=== PATIENT | male | born 1980 | race Native Hawaiian/Other Pacific Islander ===

== ENCOUNTER 2020-01-22 18:47 | Emergency (ER) | payer MEDICAID ==
[~2020-01-22] VITALS: Ht 177.8 cm; Wt 114.5 kg
[2020-01-22 18:55] VITALS: TEMP 98
[2020-01-22 19:56] LABS: BASO % 0.5 % (0.0-2.0); EOS % 0.7 % (0-4.0); GRAN # 3.9 (1.4-6.5); GRAN % 69.4 % (42.2-75.2); HEMATOCRIT 42.9 % (42.0-52.0); HEMOGLOBIN 14.3 g/dl (13.5-18.0); LYMPH # 1.3 (1.2-3.4); LYMPH % 22.5 % (20.0-51.0); MEAN CELL VOLUME 88 fl (80.0-100.0); MEAN CORPUSCULAR HEMOGLOBIN 29 pg (27.0-31.0); MEAN CORPUSCULAR HGB CONC 33 g/dl (33.0-37.0); MEAN PLATELET VOLUME 9.3 fl (7.4-10.4); MONO # 0.4 (0.1-0.6); MONO % 6.5 % (1.7-9.3); PLATELET COUNT 236 K/mm3 (130-400); RED BLOOD COUNT 4.87 M/mm3 (4.20-5.60); REDCELL DISTRIBUTION WIDTH-CV 12.4 % (11.5-14.5)
[2020-01-22 19:57] LABS: ALANINE AMINOTRANSFERASE 90 U/L (4-49); ALBUMIN 4.6 gm/dL (3.5-5.0); ALKALINE PHOSPHATASE 72 U/L (50-136); ANION GAP 11 mmol/L (7-16); AST,SGOT 48 U/L (15-37); BILIRUBIN,TOTAL 0.7 mg/dL (0.0-1.0); BLOOD UREA NITROGEN 17 mg/dL (9-20); C-REACTIVE PROTEIN 0.7 mg/dL (0.0-0.9); CARBON DIOXIDE 26 mmol/L (22-30); CHLORIDE 102 mmol/L (98-107); CREATININE, serum 1.11 (0.66-1.25); GLUCOSE 107 mg/dL (74-106); POTASSIUM 3.9 mmol/L (3.4-5.0); SODIUM 138 mmol/L (137-145); TOTAL PROTEIN 8.1 gm/dL (6.4-8.2)
[2020-01-22 20:05] LABS: TROPONIN-I < 0.012 ng/mL (0.000-0.035)
[2020-01-22] MEDS ORDERED: BYSTOLIC10 MG PO (20:18)
[2020-01-22] MEDS ORDERED: AMBIEN 10MG10 MG PO (20:19)
[2020-01-22] MEDS ORDERED: ATIVAN2 MG PO (20:19)
[2020-01-22] MEDS ORDERED: FLONASEALLERGY NS (20:19)
[2020-01-22 20:27] VITALS: BP 126/66; PULSE 80
== END 2020-01-22 20:43 | disposition home or self-care (01) ==
LOC: COL.ER 18:47
PROVIDERS: Emergency Medicine
DX: F41.9 Anxiety disorder, unspecified (principal)
CPT/HCPCS: J2060; J2405; J7030

== ENCOUNTER 2020-04-27 22:49 | Emergency (ER) | payer MEDICAID ==
[~2020-04-27] VITALS: Ht 175.3 cm; Wt 111.8 kg
[~2020-04-27 22:49] MED LIST: AMBIEN 10MG10 MG PO; ATIVAN2 MG PO; BYSTOLIC10 MG PO; FLONASEALLERGY NS
[2020-04-27 22:52] VITALS: TEMP 99.1
[2020-04-27] MEDS ORDERED: ASPIRIN 32325 MG/TAB PO (23:26)
[2020-04-28 00:04] LABS: ALBUMIN 4.8 gm/dL (3.5-5.0); BILIRUBIN,TOTAL 0.7 mg/dL (0.0-1.0); CALCIUM 9.9 mg/dL (8.4-10.2); CREATININE, serum 1.17 (0.66-1.25); MAGNESIUM 1.9 mg/dL (1.6-2.3); TOTAL PROTEIN 7.8 gm/dL (6.4-8.2)
[2020-04-28 00:16] LABS: TROPONIN-I 0.02 ng/mL (0.000-0.035)
[2020-04-28 00:18] LABS: BASO % 0.6 % (0.0-2.0); EOS % 0.7 % (0-4.0); GRAN # 3.5 (1.4-6.5); GRAN % 64.7 % (42.2-75.2); HEMATOCRIT 42.5 % (42.0-52.0); HEMOGLOBIN 14.4 g/dl (13.5-18.0); LYMPH # 1.4 (1.2-3.4); LYMPH % 26.4 % (20.0-51.0); MEAN CELL VOLUME 89 fl (80.0-100.0); MEAN CORPUSCULAR HEMOGLOBIN 30 pg (27.0-31.0); MEAN CORPUSCULAR HGB CONC 34 g/dl (33.0-37.0); MEAN PLATELET VOLUME 9.6 fl (7.4-10.4); MONO # 0.4 (0.1-0.6); MONO % 7.4 % (1.7-9.3); PLATELET COUNT 231 K/mm3 (130-400); REDCELL DISTRIBUTION WIDTH-CV 12.4 % (11.5-14.5)
[2020-04-28] MEDS ORDERED: KLONOPIN 1MG1 MG PO (02:14)
[2020-04-28] MEDS ORDERED: CATAPRES 0.1MG0.1 MG PO (02:14)
[2020-04-28 02:33] VITALS: BP 111/73; PULSE 75
== END 2020-04-28 02:34 | disposition home or self-care (01) ==
LOC: COL.ER 22:49
PROVIDERS: Emergency Medicine
DX: R00.2 Palpitations (principal); F41.9 Anxiety disorder, unspecified; I10 Essential (primary) hypertension; Z88.8 Allergy status to other drugs, medicaments and biological substances; Z79.82 Long term (current) use of aspirin

== ENCOUNTER 2021-06-01 18:27 | Emergency (ER) | payer MEDICAID ==
[~2021-06-01] VITALS: Ht 175.3 cm; Wt 110.5 kg
[~2021-06-01 18:27] MED LIST changes: +ASPIRIN 32325 MG/TAB PO; +CATAPRES 0.1MG0.1 MG PO; +KLONOPIN 1MG1 MG PO
[2021-06-01 18:44] VITALS: TEMP 98.1
[2021-06-01 20:14] LABS: BASO % 0.5 % (0.0-2.0); EOS # 0.1 K/mm3 (0.0-0.7); GRAN # 4.4 K/mm3 (1.4-6.5); GRAN % 73.8 % (42.2-75.2); HEMOGLOBIN 14.6 g/dl (13.5-18.0); LYMPH # 1.1 K/mm3 (1.2-3.4); LYMPH % 17.8 % (20.0-51.0); MEAN CELL VOLUME 88 fl (80.0-100.0); MEAN CORPUSCULAR HEMOGLOBIN 31 pg (27.0-31.0); MEAN CORPUSCULAR HGB CONC 35 g/dl (33.0-37.0); MEAN PLATELET VOLUME 8.8 fl (7.4-10.4); MONO # 0.4 K/mm3 (0.1-0.6); MONO % 6.7 % (1.7-9.3); PLATELET COUNT 251 K/mm3 (130-400); RED BLOOD COUNT 4.78 M/mm3 (4.20-5.60)
[2021-06-01 20:32] LABS: ALBUMIN 4.7 gm/dL (3.5-5.0); C-REACTIVE PROTEIN 0.34 mg/dL (0.00-0.50); CALCIUM 10.6 mg/dL (8.4-10.2); CREATININE, serum 0.93 mg/dL (0.72-1.25); POTASSIUM 4.3 mmol/L (3.5-4.5)
[2021-06-01 20:37] LABS: TROPONIN-I 0.021 ng/mL (0.00-0.033)
[2021-06-01 21:25] VITALS: BP 125/76; PULSE 71
== END 2021-06-01 21:39 | disposition home or self-care (01) ==
LOC: COL.ER 18:27
PROVIDERS: Nurse Practitioner
DX: F41.9 Anxiety disorder, unspecified (principal); T43.595A Adverse effect of other antipsychotics and neuroleptics, initial encounter; I10 Essential (primary) hypertension; Z79.899 Other long term (current) drug therapy

== ENCOUNTER 2021-09-17 18:34 | Emergency (ER) | payer MEDICAID ==
[~2021-09-17] VITALS: Ht 172.7 cm; Wt 110.0 kg
[2021-09-17 18:46] VITALS: TEMP 102.1
[2021-09-17 20:39] VITALS: BP 111/71; PULSE 81
== END 2021-09-17 20:39 | disposition home or self-care (01) ==
LOC: COL.ER 18:34
DX: U07.1 COVID-19 (principal); I10 Essential (primary) hypertension; F41.9 Anxiety disorder, unspecified; Z79.899 Other long term (current) drug therapy; Z73.0 Burn-out
CPT/HCPCS: J7030

== ENCOUNTER 2021-09-19 21:49 | Inpatient (IN) | payer MEDICAID ==
[~2021-09-19] VITALS: Ht 172.7 cm; Wt 96.7 kg
[2021-09-19 23:12] LABS: GRAN # 2.2 K/mm3 (1.4-6.5); GRAN % 67.4 % (42.2-75.2); HEMOGLOBIN 12.8 g/dl (13.5-18.0); LYMPH # 0.8 K/mm3 (1.2-3.4); LYMPH % 25.6 % (20.0-51.0); MEAN CELL VOLUME 86 fl (80.0-100.0); MEAN CORPUSCULAR HEMOGLOBIN 30 pg (27-31); MEAN CORPUSCULAR HGB CONC 35 g/dl (33.0-37.0); MEAN PLATELET VOLUME 9.3 fl (7.4-10.4); MONO # 0.2 K/mm3 (0.1-0.6); MONO % 6.7 % (1.7-9.3); PLATELET COUNT 131 K/mm3 (130-400); RED BLOOD COUNT 4.33 M/mm3 (4.20-5.60); REDCELL DISTRIBUTION WIDTH-CV 12.2 % (11.5-14.5)
[2021-09-19 23:30] LABS: ALBUMIN 3.7 gm/dL (3.5-5.0); BILIRUBIN,TOTAL 0.4 mg/dL (0.2-1.2); C-REACTIVE PROTEIN 6.49 mg/dL (0.00-0.50); CALCIUM 8.4 mg/dL (8.4-10.2); CREATININE, serum 0.83 mg/dL (0.72-1.25); TOTAL PROTEIN 6.7 gm/dL (6.2-8.1)
[2021-09-19 23:35] LABS: TROPONIN-I 0.012 ng/mL (0.00-0.033)
[2021-09-20] VITALS (7 sets, daily range): BP systolic 113–135; BP diastolic 63–76; PULSE 78–92; TEMP 98–101.3
[2021-09-20 00:06] LABS: INR 1.4 (0.8-3.0); PROTHROMBIN TIME 15.7 SECONDS (9.7-12.8)
[2021-09-20] MEDS ORDERED: PRINIVIL20 MG PO (01:32)
[2021-09-20] MEDS ORDERED: BRINTELLIX5 (01:33)
--- NOTE | 2021-09-20 02:20 | NUR ---
PT UP TO MEDICAL FLOOR AND ARRIVES TO ROOM 301 BY ED STAFF AT ABOUT 0115. PT IND, A/OX4, 02 2L NC, TEMPERATURE 101.2, MEDICAITON PROVIDED. MED REC COMPLETE. ASSESMENT COMPLETE. PT ORIENTED TO FLOOR AND HOSPITAL POLICY. .PT DENIES PAIN,SOA,N,V,D AT THIS TIME BUT HAS REPORTED S/S FROM EARLIER THIS DAY. POC DISCUSSED WITH PT, PT VERBALIZES UNDERSTANDING. FOOD BOX PROVIDED. MEDICATION ADMINISTERED ORDERED. PT INSTRUCTED TO REPOISION Q2 AND PURPOSE OF POSTIONING AND S/.S TO REPORT. ALL NEEDS MET AT THIS TIME. PT EXPESSES NO ADDITONAL NEEDS AT THIS TIME. CALL LIGHT WTIHN REACH.
--- NOTE | 2021-09-20 05:32 | NUR ---
PT TEMPERATURE SUBSIDED WITH TYLENOL ADMINISTRATION. 02 NEEDS DID NOT INCREASE OVERNIGHT. PT PLEASANT AND COOPERATIVE THIS SHIFT. ALL NEEDS MET AT THIS TIME. CALL LIGHT WITHN REACH.
[2021-09-20 06:32] LABS: HEMATOCRIT 38.4 % (42.0-52.0); HEMOGLOBIN 12.9 g/dl (13.5-18.0); MEAN CELL VOLUME 89 fl (80.0-100.0); MEAN CORPUSCULAR HEMOGLOBIN 30 pg (27-31); MEAN CORPUSCULAR HGB CONC 34 g/dl (33.0-37.0); MEAN PLATELET VOLUME 9.3 fl (7.4-10.4); PLATELET COUNT 139 K/mm3 (130-400); RED BLOOD COUNT 4.33 M/mm3 (4.20-5.60); REDCELL DISTRIBUTION WIDTH-CV 12.3 % (11.5-14.5)
[2021-09-20 06:56] LABS: ALBUMIN 3.8 gm/dL (3.5-5.0); BILIRUBIN,TOTAL 0.4 mg/dL (0.2-1.2); CALCIUM 8.4 mg/dL (8.4-10.2); CREATININE, serum 0.88 mg/dL (0.72-1.25); POTASSIUM 5.4 mmol/L (3.5-4.5); TOTAL PROTEIN 6.3 gm/dL (6.2-8.1)
[2021-09-20 08:13] LABS: BAND 14 % (0-10); LYMPHOCYTE 21 % (20.0-51.0); NEUTROPHILS 64 % (42.0-75.2); PLATELET ESTIMATE NORMAL (NORMAL)
--- NOTE | 2021-09-20 11:02 | NUR ---
PT ASSESSED. NO COMPLAINTS OF PAIN OR DYSPNEA. DOES COMPLAIN ABOUT COUGH. NO OTHER CONCERNS AT THIS TIME. CALL LIGHT WITHIN REACH
--- NOTE | 2021-09-20 20:30 | NUR ---
Patient is sitting in the side of the bed, alert and oriented x 4, reports SOB Right now with 5 L O2 NC and 92% sat. Telemetry in place, NSR. Assessment completed, medications provided. No further needs at this time. Call light within reach.
[2021-09-21 03:32] VITALS: BP 125/68; PULSE 88; TEMP 98.3
--- NOTE | 2021-09-21 07:03 | NUR ---
Patient had a calm night. He continues with cough, SOB with exertion. 5L O2 NC. Report given to day RN.
[2021-09-21 07:27] LABS: BASO % 0.2 % (0.0-2.0); GRAN # 5.1 K/mm3 (1.4-6.5); GRAN % 79.4 % (42.2-75.2); HEMATOCRIT 38.5 % (42.0-52.0); HEMOGLOBIN 12.9 g/dl (13.5-18.0); LYMPH # 0.9 K/mm3 (1.2-3.4); LYMPH % 13.4 % (20.0-51.0); MEAN CELL VOLUME 89 fl (80.0-100.0); MEAN CORPUSCULAR HEMOGLOBIN 30 pg (27-31); MEAN CORPUSCULAR HGB CONC 34 g/dl (33.0-37.0); MEAN PLATELET VOLUME 9.2 fl (7.4-10.4); MONO # 0.4 K/mm3 (0.1-0.6); MONO % 6.7 % (1.7-9.3); PLATELET COUNT 182 K/mm3 (130-400); RED BLOOD COUNT 4.33 M/mm3 (4.20-5.60); REDCELL DISTRIBUTION WIDTH-CV 12.5 % (11.5-14.5)
[2021-09-21 07:55] LABS: ALBUMIN 3.6 gm/dL (3.5-5.0); BILIRUBIN,TOTAL 0.4 mg/dL (0.2-1.2); C-REACTIVE PROTEIN 3.41 mg/dL (0.00-0.50); CALCIUM 8.8 mg/dL (8.4-10.2); CREATININE, serum 0.78 mg/dL (0.72-1.25); POTASSIUM 4.4 mmol/L (3.5-4.5); TOTAL PROTEIN 6.5 gm/dL (6.2-8.1)
--- NOTE | 2021-09-21 08:08 | NUR ---
RT INCREASTED PT TO HIGH FLOW O2 AT 8LPM VIA NC. PT SATURATION 91% CURRENTLY. PT REPORTS HE STILL FEELS. HE SHORT OF BREATH. RN ATTEMPTED TO CALL HOSP TO ALERT OF STATUS CHANGE AND NO ANSWER.
[2021-09-21 08:17] VITALS: BP 118/74; PULSE 93; TEMP 99.1
--- NOTE | 2021-09-21 10:10 | NUR ---
PATIENT ASKED TO PUT INFORMATION IN CHART TO PLEASE CONTACT HIS 2 BROTHERS; RAHEEM AND JARED IF ANYTHING NEEDS TO BE DONE ON HIS BEHALF. THEY ARE TO BE CONTACTED FIRST, PER PATIENT. HOWARD; [phone] JARED; [phone]
[2021-09-21 10:56] VITALS: BP 122/82; PULSE 89; TEMP 98.9
--- NOTE | 2021-09-21 13:47 | NUR ---
SW completed intake with spouse Chelly [phone] due to patient not being able to reach. Spouse states that she and patient live in [facility], patient does not utilize DME and is independent with ADL's. Spouse states that PCP is Dr. Garrido, pharmacy is [facility] and there has been no individual appointed as DPOA/HC at this time. DC plan is home upon dc. Spouse had no questions or concerns up on completion of intake. SW will continue to follow. DC plan: home with spouse.
[2021-09-21 17:13] VITALS: BP 123/76; PULSE 84; TEMP 99
[2021-09-21 19:19] VITALS: BP 111/58; PULSE 87; TEMP 99.3
--- NOTE | 2021-09-21 22:18 | NUR ---
Patient sitting up in bed and watching TV upon enter the room. Patient alert and oriented. Patient denies chest pain or discomfort. Patient reports SOB with minimal activities and reports feeling very anxious. Patient requesting to get his oxygen level checked at this time. SPO2 88% on 7L oxygen via High Flow NC. Increased oxygen level to 10L and SPO2 reached 90-91%. Patient requesting to have Ativan for tonight before sleep. Called [facility] and received order for Ativan BID. All scheduled meds given per OCT. Ativan given per order. PRN cough med given per patient request for cough. Call light in reach. Will continue to monitor.
[2021-09-21 23:41] VITALS: BP 136/73; PULSE 90; TEMP 98.8
[2021-09-22 03:57] VITALS: BP 115/70; PULSE 84; TEMP 98.4
--- NOTE | 2021-09-22 04:07 | NUR ---
Patient arrived medical floor room 308 via hospital bed from ER at 02:45 am. Patient A/Ox2. Able to tell her name, date of , and place. Unable to tell time and date. Patient speech is mostly clear. Patient having trouble finding words and slow to respond when asked her questions. Patient denies any pain or SOB. Patient currently on room air and VS stable. Hernandez catheter patent and draining yellow cloudy urine. Oriented patient to the room and call light. Call light in reach. Will continue to monitor.
[2021-09-22 08:09] VITALS: BP 122/68; PULSE 82; TEMP 98.6
[2021-09-22 11:09] VITALS: BP 125/75; PULSE 82; TEMP 98.8
--- NOTE | 2021-09-22 11:30 | NUR ---
PT ASSESSED. COMPLAINS OF DYSPNEA AND IS COACHED THROUGH ANXIETY. MEDICATION GIVEN PER MAR. UPDATED. NO OTHER CONCERNS AT THIS TIME. CALL LIGHT WITHIN REACH
[2021-09-22 16:27] VITALS: BP 106/64; PULSE 83; TEMP 99.7
[2021-09-22 19:12] VITALS: BP 116/70; PULSE 85; TEMP 99.5
[2021-09-22 23:32] VITALS: BP 121/72; PULSE 89; TEMP 97.2
[2021-09-23] VITALS (7 sets, daily range): BP systolic 99–119; BP diastolic 55–64; PULSE 89–104; TEMP 99.7–102.7
--- NOTE | 2021-09-23 03:49 | NUR ---
STEFANY REYES NOTIFIED OF PATIENTS TEMP OF 102.7 ORALLY. WILL ADMINISTER TYLENOL 650MG AT THIS TIME. PATIENT ALSO REPORTED NAUSEA NEW ORDER FOR ZOFRAN 4MG Q 4 PRN.
[2021-09-23 06:48] LABS: ALBUMIN 3.7 gm/dL (3.5-5.0); BILIRUBIN,TOTAL 0.9 mg/dL (0.2-1.2); CALCIUM 9.1 mg/dL (8.4-10.2); CREATININE, serum 0.82 mg/dL (0.72-1.25); MAGNESIUM 1.9 mg/dL (1.6-2.6); POTASSIUM 4.3 mmol/L (3.5-4.5); TOTAL PROTEIN 6.5 gm/dL (6.2-8.1)
[2021-09-23 06:50] LABS: GRAN # 5.5 K/mm3 (1.4-6.5); GRAN % 75.8 % (42.2-75.2); HEMATOCRIT 40.2 % (42.0-52.0); HEMOGLOBIN 13.4 g/dl (13.5-18.0); LYMPH # 1.4 K/mm3 (1.2-3.4); LYMPH % 19.3 % (20.0-51.0); MEAN CELL VOLUME 88 fl (80.0-100.0); MEAN CORPUSCULAR HEMOGLOBIN 29 pg (27-31); MEAN CORPUSCULAR HGB CONC 33 g/dl (33.0-37.0); MEAN PLATELET VOLUME 9.7 fl (7.4-10.4); MONO # 0.3 K/mm3 (0.1-0.6); MONO % 4.4 % (1.7-9.3); PLATELET COUNT 262 K/mm3 (130-400); RED BLOOD COUNT 4.56 M/mm3 (4.20-5.60); REDCELL DISTRIBUTION WIDTH-CV 12.4 % (11.5-14.5)
--- NOTE | 2021-09-23 09:35 | NUR ---
PT ASSESSED. NO COMPLAINTS OF PAIN OR DYSPNEA. COMPLAINS OF NAUSEA AND IS MEDICATED PER MAR. MEDICATED FOR FEVER WITH TYLENOL. CALL LIGHT WITHIN REACH
[2021-09-24 03:27] VITALS: BP 118/71; PULSE 95; TEMP 99.9
[2021-09-24 06:34] LABS: EOS % 0.2 % (0.0-4.0); GRAN # 4.6 K/mm3 (1.4-6.5); HEMATOCRIT 37.6 % (42.0-52.0); HEMOGLOBIN 12.9 g/dl (13.5-18.0); LYMPH # 1.1 K/mm3 (1.2-3.4); LYMPH % 18.6 % (20.0-51.0); MEAN CELL VOLUME 87 fl (80.0-100.0); MEAN CORPUSCULAR HEMOGLOBIN 30 pg (27-31); MEAN CORPUSCULAR HGB CONC 34 g/dl (33.0-37.0); MEAN PLATELET VOLUME 9.1 fl (7.4-10.4); MONO # 0.3 K/mm3 (0.1-0.6); MONO % 5.4 % (1.7-9.3); PLATELET COUNT 270 K/mm3 (130-400); RED BLOOD COUNT 4.34 M/mm3 (4.20-5.60); REDCELL DISTRIBUTION WIDTH-CV 12.2 % (11.5-14.5)
[2021-09-24 06:49] LABS: CALCIUM 8.7 mg/dL (8.4-10.2); CREATININE, serum 0.79 mg/dL (0.72-1.25); POTASSIUM 4.3 mmol/L (3.5-4.5)
[2021-09-24 07:35] VITALS: BP 122/63; PULSE 104; TEMP 101.3
--- NOTE | 2021-09-24 09:42 | NUR ---
PT ASSESSED. NO COMPLAINTS OF PAIN OR DYSPNEA. COMPLAINS OF NAUSEA AND IS MEDICATED PER MAR. NO OTHER CONCERNS AT THIS TIME. CALL LIGHT WITHIN REACH
[2021-09-24 12:21] VITALS: BP 114/74; PULSE 91; TEMP 99.5
--- NOTE | 2021-09-24 14:56 | NUR ---
Relationship Manager attempted to contact patient by room phone with no sucess. SW then contacted patient's , Chelly to touch base. Chelly provided patient's cell phone #[phone]. Chelly advised that Hospitalist called her and told her that no other hospital has accepted him. Patient is requesting transfer to a larger hospital in hopes that he can have visitors. Transfer is not medically necessary at this time. Chelly stated patient has "cabin fever". Chelly also advised patient has insomnia, so sometimes he may not answer the phone.
[2021-09-24 17:04] VITALS: BP 128/75; PULSE 98; TEMP 101.5
[2021-09-24 20:02] VITALS: BP 96/62; PULSE 94; TEMP 99.3
--- NOTE | 2021-09-24 21:00 | NUR ---
Patient is sitting on the side of the bed, alert and oriented x 4, VSS, states having nausea and SOB with exertion. Right now at 10 L O2 HFNC. Telemetry in place, NSR. Assessment completed, medications provided. No other needs at this time. Call light within reach.
[2021-09-25 00:16] VITALS: BP 102/54; PULSE 97; TEMP 100.6
[2021-09-25 04:02] VITALS: BP 116/59; PULSE 95; TEMP 100.7
--- NOTE | 2021-09-25 05:16 | NUR ---
Patient has had fever along the night. Tylenol was provided. He is right now at 8 L O2 HFNC. He complained of some nausea. Report will be given to day RN.
[2021-09-25 06:30] LABS: EOS # 0.1 K/mm3 (0.0-0.7); EOS % 1.1 % (0.0-4.0); GRAN # 5.6 K/mm3 (1.4-6.5); GRAN % 83.6 % (42.2-75.2); HEMOGLOBIN 11.9 g/dl (13.5-18.0); LYMPH # 0.7 K/mm3 (1.2-3.4); LYMPH % 10.4 % (20.0-51.0); MEAN CELL VOLUME 87 fl (80.0-100.0); MEAN CORPUSCULAR HEMOGLOBIN 30 pg (27-31); MEAN CORPUSCULAR HGB CONC 34 g/dl (33.0-37.0); MEAN PLATELET VOLUME 9.2 fl (7.4-10.4); MONO # 0.3 K/mm3 (0.1-0.6); MONO % 3.8 % (1.7-9.3); PLATELET COUNT 329 K/mm3 (130-400); REDCELL DISTRIBUTION WIDTH-CV 12.2 % (11.5-14.5)
[2021-09-25 06:41] LABS: CALCIUM 8.4 mg/dL (8.4-10.2); CREATININE, serum 0.81 mg/dL (0.72-1.25); HEMATOCRIT 34.9 % (42.0-52.0); POTASSIUM 3.9 mmol/L (3.5-4.5)
[2021-09-25 07:45] VITALS: BP 105/56; PULSE 94; TEMP 100.6
--- NOTE | 2021-09-25 11:03 | NUR ---
PT ASSESSED. NO COMPLAINTS OF PAIN OR DYSPNEA. NO SIGNS OR SYMPTOMS OF DISTRESS. CALL LIGHT WITHIN REACH
[2021-09-25 12:39] VITALS: BP 121/66; PULSE 103; TEMP 99.6
[2021-09-25 16:25] VITALS: BP 108/51; PULSE 91; TEMP 102.2
--- NOTE | 2021-09-25 19:30 | NUR ---
Patient is resting in bed, alert and oriented x 4, VSS, receiving a dose of antibiotics. 5L [address], NSR. Stated some nausea along the day but not now. Assessment completed, no other needs at this time. Call light within reach.
[2021-09-25 21:02] VITALS: BP 121/63; PULSE 89; TEMP 98.1
[2021-09-26] VITALS (7 sets, daily range): BP systolic 102–1104; BP diastolic 56–70; PULSE 84–102; TEMP 98.8–101.9
--- NOTE | 2021-09-26 04:58 | NUR ---
Patient have fever and complains of nausea. Tylenol and Zofran provided.
--- NOTE | 2021-09-26 06:22 | NUR ---
Patient had a shower, complained of nausea, had an episode of fever 101.3. Right now at 7L 02 NC. Shift report will be given to day RN.
[2021-09-26 07:54] LABS: BASO % 0.2 % (0.0-2.0); EOS # 0.3 K/mm3 (0.0-0.7); EOS % 4.1 % (0.0-4.0); GRAN # 5.2 K/mm3 (1.4-6.5); GRAN % 80.9 % (42.2-75.2); HEMOGLOBIN 11.2 g/dl (13.5-18.0); LYMPH # 0.6 K/mm3 (1.2-3.4); LYMPH % 9.4 % (20.0-51.0); MEAN CELL VOLUME 88 fl (80.0-100.0); MEAN CORPUSCULAR HEMOGLOBIN 30 pg (27-31); MEAN CORPUSCULAR HGB CONC 34 g/dl (33.0-37.0); MEAN PLATELET VOLUME 9.3 fl (7.4-10.4); MONO # 0.3 K/mm3 (0.1-0.6); MONO % 4.6 % (1.7-9.3); PLATELET COUNT 324 K/mm3 (130-400); RED BLOOD COUNT 3.79 M/mm3 (4.20-5.60); REDCELL DISTRIBUTION WIDTH-CV 12.3 % (11.5-14.5)
[2021-09-26 08:03] LABS: HEMATOCRIT 33.3 % (42.0-52.0)
[2021-09-26 08:14] LABS: CALCIUM 8.2 mg/dL (8.4-10.2); CREATININE, serum 0.77 mg/dL (0.72-1.25); POTASSIUM 4.1 mmol/L (3.5-4.5)
--- NOTE | 2021-09-26 10:31 | NUR ---
PT RESTING IN BED. MORNING MEDICATIONS GIVEN. SHIFT ASSESSMENT COMPLETED. NEW IV STARTED TO L AC, OLD IV D/C. PT DENIES ANY PAIN AT THIS TIME. URINE SAMPLE OBTAINED. REQUESTING MORE FLONASE DUE TO DRY NARES FROM OXYGEN, PHARMACY CONTACTED. CURRENTLY ON 6L VIA MI. WILL CONTINUE TO MONITOR.
[2021-09-26 13:16] LABS: MUCOUS Present (NOT PRESENT); PH 6 (5-8); SQUAMOUS EPITHELIAL None Seen /hpf (0-10); URINE APPEARANCE Clear (CLEAR/HAZY); URINE BACTERIA None Seen /hpf (NONE SEEN); URINE BILIRUBIN Negative (NEGATIVE); URINE BLOOD Negative (NEGATIVE); URINE COLOR Yellow (YELLOW); URINE GLUCOSE Negative (NEGATIVE); URINE KETONE Trace (NEGATIVE); URINE LEUKOCYTE ESTERASE Negative (NEGATIVE); URINE NITRATE Negative (NEGATIVE); URINE PROTEIN(semi-quant) Negative (NEGATIVE); URINE RBC 0-2 /hpf (0-2); URINE UROBILINOGEN >=4.0 (NEGATIVE)
[2021-09-26 13:43] LABS: COLLECTION METHOD CLEAN CATCH
--- NOTE | 2021-09-26 21:00 | NUR ---
Patient is resting in chair, receiving antibiotics and watching televition. Family drop some food for him. Telemetry in place, 6L O2 NC. Continues with intermitent fever. Assessment completed, medications provided. No other needs at this time. Call light within reach.
[2021-09-27] VITALS (7 sets, daily range): BP systolic 97–117; BP diastolic 52–70; PULSE 83–90; TEMP 99.2–102.2
--- NOTE | 2021-09-27 06:16 | NUR ---
Patient continues with fever and nausea but states he is feeling better. Right now at 8L O2 HFNC. Report will be given to day RN.
[2021-09-27 07:59] LABS: BASO % 0.2 % (0.0-2.0); EOS # 0.2 K/mm3 (0.0-0.7); EOS % 4.5 % (0.0-4.0); GRAN # 3.9 K/mm3 (1.4-6.5); GRAN % 73.9 % (42.2-75.2); HEMOGLOBIN 11.5 g/dl (13.5-18.0); LYMPH # 0.8 K/mm3 (1.2-3.4); LYMPH % 15.4 % (20.0-51.0); MEAN CELL VOLUME 88 fl (80.0-100.0); MEAN CORPUSCULAR HEMOGLOBIN 30 pg (27-31); MEAN CORPUSCULAR HGB CONC 34 g/dl (33.0-37.0); MEAN PLATELET VOLUME 8.9 fl (7.4-10.4); MONO # 0.3 K/mm3 (0.1-0.6); MONO % 4.9 % (1.7-9.3); PLATELET COUNT 397 K/mm3 (130-400); RED BLOOD COUNT 3.88 M/mm3 (4.20-5.60); REDCELL DISTRIBUTION WIDTH-CV 12.5 % (11.5-14.5)
[2021-09-27 08:04] LABS: HEMATOCRIT 34.2 % (42.0-52.0)
[2021-09-27 08:05] LABS: ALBUMIN 2.5 gm/dL (3.5-5.0); BILIRUBIN,TOTAL 0.7 mg/dL (0.2-1.2); CALCIUM 8.8 mg/dL (8.4-10.2); CREATININE, serum 0.7 mg/dL (0.72-1.25); POTASSIUM 4.4 mmol/L (3.5-4.5); TOTAL PROTEIN 6.3 gm/dL (6.2-8.1)
--- NOTE | 2021-09-27 09:07 | NUR ---
PT RESTING IN BED. MORNING MEDICATIONS GIVEN. SHIFT ASSESSMENT COMPLETED. DENIES ANY PAIN AT THIS TIME. PT IS DROWSY. CURRENTLY ON 7L VIA NE. CONTINUING TO MONITOR.
--- NOTE | 2021-09-27 11:16 | NUR ---
Dissolver Operator attempted to contact patient by cell and left a voicemail.
--- NOTE | 2021-09-27 17:43 | NUR ---
THIS RN DISCOVERED PT WAS TAKING PERSONAL MEDICATIONS FROM PILL BOTTLES IN ROOM. MEDICATIONS REMOVED FROM ROOM AND DR. CABRERA CONTACTED. INSTRUCTED TO UPDATE MED REC WITH WHAT PT HAS BEEN TAKING.
[2021-09-27] MEDS ORDERED: CATAPRES 0.1MG0.1 MG PO (17:50)
[2021-09-27] MEDS ORDERED: ZOFRAN 4MG T4 MG/TAB PO (17:51)
[2021-09-27] MEDS ORDERED: MUCINEX1200 MG PO (17:53)
[2021-09-27] MEDS ORDERED: ADVIL200 MG PO (17:54)
[2021-09-27] MEDS ORDERED: TYLENOL 500MG500 MG PO (17:54)
[2021-09-28 03:13] VITALS: BP 124/62; PULSE 104; TEMP 100.8
--- NOTE | 2021-09-28 03:45 | NUR ---
NOTIFIED BY SCHEDULING ADMINISTRATOR THAT O2 SATS 85% ON 9L HFNC, INCREASED OXYGEN TO 12L THEN TO 15L, SATS UP TO 88-89%, PT STATES HE IS UNABLE TO PRONE D/T STACI. ELEVATED HOB, NOTIFIED RT AND NIXON Peterson APRN OF INCREASED O2 REQUIREMENTS. PT FEELS "STUFFED UP" SALINE SPRAY ORDER OBTAINED.
--- NOTE | 2021-09-28 06:13 | NUR ---
PT placed on airvo this shift, unable to keep sats >90% on HFNC. settings 40L 90%. pt asking to have flow decreased so he can sleep, RT notified, no changes at this time. up ad sherman in room, voiding in urinal. INT in LAC patent/secure. Tmax 100.8 tonight, has requested tylenol x2, last @0400.
[2021-09-28 06:58] LABS: BASO % 0.2 % (0.0-2.0); EOS # 0.3 K/mm3 (0.0-0.7); EOS % 4.8 % (0.0-4.0); GRAN % 76.1 % (42.2-75.2); HEMOGLOBIN 10.9 g/dl (13.5-18.0); LYMPH # 0.6 K/mm3 (1.2-3.4); LYMPH % 11.9 % (20.0-51.0); MEAN CELL VOLUME 87 fl (80.0-100.0); MEAN CORPUSCULAR HEMOGLOBIN 29 pg (27-31); MEAN CORPUSCULAR HGB CONC 34 g/dl (33.0-37.0); MEAN PLATELET VOLUME 8.9 fl (7.4-10.4); MONO # 0.3 K/mm3 (0.1-0.6); MONO % 5.9 % (1.7-9.3); PLATELET COUNT 404 K/mm3 (130-400); RED BLOOD COUNT 3.71 M/mm3 (4.20-5.60); REDCELL DISTRIBUTION WIDTH-CV 12.5 % (11.5-14.5)
[2021-09-28 07:05] LABS: CALCIUM 8.5 mg/dL (8.4-10.2); CREATININE, serum 0.69 mg/dL (0.72-1.25)
[2021-09-28 07:42] LABS: HEMATOCRIT 32.3 % (42.0-52.0)
[2021-09-28 08:08] VITALS: BP 91/51; PULSE 79; TEMP 98.5
--- NOTE | 2021-09-28 10:12 | NUR ---
PT ALERT AND ORIENTED IN ROOM. ASSESSMENT COMPLETED TO BEST OF ABILITY. ANSWERED QUESTIONS TO BEST OF ABILITY. PT ABLE TO EXPRESS NEEDS. ADDRESSED LOW BP AND NEED FOR HOLDING BP MEDICATIONS. DISCUSSED WITH PT, STATED WANTING TO TAKE AT LEAST ONE MEDICATION, RELAYED TO DR. CABRERA FOR FURTHER EDUCATION. PT AFEBRILE FOR 0800 VS. PT BROTHER CALLED FOR UPDATE, CONFIRMED VERBAL CONSENT BY PT. CALL LIGHT WITHIN REACH, BREAKFAST TRAY IN ROOM.
--- NOTE | 2021-09-28 11:21 | NUR ---
PT BROTHER CALLED FOR UPDATE. VERBAL CONSENT RECEIVED BY PT. UPDATE GIVEN TO BEST OF ABILITY. PT BROTHER REQUESTING UPDATE BY DR. CABRERA WILL RELAY REQUEST.
[2021-09-28 11:52] VITALS: BP 117/69; PULSE 87; TEMP 99.3
--- NOTE | 2021-09-28 11:55 | NUR ---
DISCUSSED WITH PT, PT WANTING TO CHANGE FROM FULL RESUSCITATION TO DO NOT INTUBATE. NOTIFIED JENNIFER NORIEGA AND DR. CABRERA. NOTIFIED DR. CABRERA PT FAMILY WANTING TO BE UPDATED AND PT WANTING TO TRANSFER TO . PT BROTHER RAHEEM [phone].
--- NOTE | 2021-09-28 14:28 | NUR ---
PT EXPRESSING YAZIDI PREFERENCES TO HAVE JOB CHANGE CREW MEMBER FROM [facility] NOTIFIED SHOULD THERE BE CONCERNS FOR DECREASED LIFE EXPECTANCY. DOCUMENTING HERE FOR FUTURE REFERENCE.
[2021-09-28 15:43] VITALS: BP 116/72; PULSE 96; TEMP 98.3
--- NOTE | 2021-09-28 16:32 | NUR ---
PT CALLED, OBTAINED VERBAL CONSENT FROM PT. UPDATED TO BEST OF ABILITY. PT VERBALIZED UNDERSTANDING.
--- NOTE | 2021-09-28 18:37 | NUR ---
PT HAD OWN FOOD BROUGHT IN
--- NOTE | 2021-09-28 18:37 | NUR ---
PT CONTINUING ON PLAN OF CARE. MEDICATIONS GIVEN PER ORDERS. UPDATED PHYSICIANS WITH PT STATUS ON AIRVO. PT NOW ON HF CANNULA PER RESPIRATORY THERAPY. PT ABLE TO CALL FOR NEEDS AND EXPRESS CONCERNS FREELY. PT CALL LIGHT WITHIN REACH, NO SIGNIFICANT CHANGES NOTED IN PT THIS SHIFT.
[2021-09-28 19:15] VITALS: BP 131/82; PULSE 95; TEMP 99.2
[2021-09-28 23:35] VITALS: BP 134/84; PULSE 96; TEMP 98.9
[2021-09-29 03:32] VITALS: BP 127/75; PULSE 92; TEMP 98
[2021-09-29 05:25] LABS: ARTERIAL BLD GAS O2 SATURATION 97.2 % (92-100); ARTERIAL BLD GAS TCO2 CT 27.9; ARTERIAL BLOOD GAS BASE EXCESS 2.3 (-2-2); ARTERIAL BLOOD GAS HCO3 26.6 meq/L (22-26); ARTERIAL BLOOD GAS PCO2 40.5 mmHg (35-45); ARTERIAL BLOOD GAS PO2 90.7 mmHg (80-100); ARTERIAL BLOOD GAS pH 7.44 (7.35-7.45)
[2021-09-29 07:32] LABS: HEMATOCRIT 37.1 % (42.0-52.0); HEMOGLOBIN 12.2 g/dl (13.5-18.0); MEAN CELL VOLUME 89 fl (80.0-100.0); MEAN CORPUSCULAR HEMOGLOBIN 29 pg (27-31); MEAN CORPUSCULAR HGB CONC 33 g/dl (33.0-37.0); MEAN PLATELET VOLUME 9.2 fl (7.4-10.4); RED BLOOD COUNT 4.16 M/mm3 (4.20-5.60); REDCELL DISTRIBUTION WIDTH-CV 12.5 % (11.5-14.5)
[2021-09-29 07:34] LABS: CALCIUM 9.9 mg/dL (8.4-10.2); CREATININE, serum 0.75 mg/dL (0.72-1.25); POTASSIUM 4.5 mmol/L (3.5-4.5)
[2021-09-29 07:35] LABS: PLATELET COUNT 527 K/mm3 (130-400)
[2021-09-29 08:03] VITALS: BP 134/85; PULSE 89; TEMP 98.2
[2021-09-29 09:22] LABS: LYMPHOCYTE 3 % (20.0-51.0); NEUTROPHILS 89 % (42.0-75.2)
--- NOTE | 2021-09-29 11:20 | NUR ---
PT SITTING UP IN BED WATHCING TV. AT BEDSIDE. PT STATES THAT HE WOULD LIKE TO HAVE ICE IN CUP. ICE WAS GOTTEN FOR PT. NO OTHER NEEDS VOICED AT THIS TIME. PT STATES THAT HE IS NOT HAVING ANY PAIN. CALL LIGHT IS WITHIN REACH.
[2021-09-29 11:29] VITALS: BP 131/79; PULSE 91; TEMP 98.2
[2021-09-29 16:01] VITALS: BP 123/90; PULSE 98; TEMP 98.3
--- NOTE | 2021-09-29 18:37 | NUR ---
PT SITTING IN BED WITH 7L VIA HIGH FLOW NC ON. PT STATES THAT HE JUST GOT UP AND WALKED AROUND THE ROOM. STATES HE DID GET A LITTLE SOB AND HAD TO REST. PT HAS PULSE OX ON AND HE IS AT 89-90%. PT STATES THAT HE IS GOING TO REST AND THEN TRY AGAIN LATER. PT STATES NO OTHER NEEDS AT THIS TIME. CALL LIGHT IS WITHIN REACH.
[2021-09-29 20:20] VITALS: BP 135/90; PULSE 100; TEMP 98.4
[2021-09-30] VITALS (7 sets, daily range): BP systolic 104–140; BP diastolic 67–91; PULSE 66–93; TEMP 97.4–98.7
[2021-09-30 06:46] LABS: BASO % 0.2 % (0.0-2.0); GRAN # 10.5 K/mm3 (1.4-6.5); GRAN % 82.8 % (42.2-75.2); HEMATOCRIT 38.1 % (42.0-52.0); HEMOGLOBIN 12.6 g/dl (13.5-18.0); LYMPH # 1.5 K/mm3 (1.2-3.4); LYMPH % 11.9 % (20.0-51.0); MEAN CELL VOLUME 88 fl (80.0-100.0); MEAN CORPUSCULAR HEMOGLOBIN 29 pg (27-31); MEAN CORPUSCULAR HGB CONC 33 g/dl (33.0-37.0); MONO # 0.5 K/mm3 (0.1-0.6); MONO % 4.2 % (1.7-9.3); PLATELET COUNT 609 K/mm3 (130-400); RED BLOOD COUNT 4.33 M/mm3 (4.20-5.60); REDCELL DISTRIBUTION WIDTH-CV 12.3 % (11.5-14.5)
--- NOTE | 2021-09-30 06:51 | NUR ---
PT on 5L O2 this shift, able to take long shower during the noc without feeling increased SOA, up ad sherman in room, no fevers tonight, BP beginning to elevate, pt requested prn ativan @HS, but only wanted half a dose, 1 mg, tolerated well. LAC INT patent/secure.
[2021-09-30 07:03] LABS: CALCIUM 9.8 mg/dL (8.4-10.2); CREATININE, serum 0.91 mg/dL (0.72-1.25); POTASSIUM 4.5 mmol/L (3.5-4.5)
--- NOTE | 2021-09-30 09:20 | NUR ---
PT SITTING UP IN BED. 6 LIT VIA [employer] ON. PT STATES THAT HE WANTS TO TAKE HIS OWN BP MEDICATION "THE DR TOLD ME THAT I HAVE TO TAKE MY OWN AND NOT ANY OTHER KIND BECAUSE I HAD A REACTION TO IT" PHARMACY WAS CALLED AND PTS MEDICATION WAS LABELED AND SENT DOWN FOR USE. MEDICATION WAS GIVEN TO PT AND THEN PLACED IN MED ROOM. PT STATES NO PAIN. PT ENCOURAGED TO GET UP AND MOVE AROUND ROOM. PT ENCOURAGED TO USE INCESTIVE SPIROMETER. PT STATES "I AM GOING TO DO THAT LATER." PT VOICED NO OTHER CONCERNS AT THIS TIME. CALL LIGHT IS SNAPP'.
--- NOTE | 2021-09-30 11:16 | NUR ---
The patient was down to 5 liters of oxygen this morning. The hospitalist plans to order an exercise oximetry on the patient tomorrow. SW attempted to contact the patient's room and cell phone to follow up. He did not answer and his cell phone went straight to voicemail. JENNIFER contacted the patient's , Chelly, to follow up. She is hopeful that the patient can discharge tomorrow or soon. She had no other concerns for JENNIFER at this time.
--- NOTE | 2021-09-30 18:44 | NUR ---
PT STANDING AT WINDOW VISITING WITH FAMILY OUTSIDE. PT STATES NO NEEDS AT THIS TIME. [facility]
[2021-10-01 03:16] VITALS: BP 126/86; PULSE 75; TEMP 98
--- NOTE | 2021-10-01 06:02 | NUR ---
pt on 5L O2 all shift, ativan given @HS, pt slept well most of the noc.
[2021-10-01 08:14] VITALS: BP 123/87; PULSE 73; TEMP 98
--- NOTE | 2021-10-01 09:00 | NUR ---
PT SITTING UP IN BED ON 2LIT VIA NC. STATES THAT HE IS READY TO GO HOME. PT STATES THAT HE WOULD LIKE TO HAVE SOME ATIVAN BEFORE HE GOES HOME. 1MG WAS GIVEN TO PT. PT STATES NO OTHER NEEDS AT THIS TIME. "I AM JUST READY TO GET OUT OF HERE." PT STATES THAT HE IS NOT HAVING ANY PAIN. CALL LIGHT IS WITHIN REACH.
[2021-10-01] MEDS ORDERED: FLONASE NASAL S16 GM NS (09:01)
[2021-10-01] MEDS ORDERED: PROAIR HFA0.09 MG/AC IH (09:03)
[2021-10-01] MEDS ORDERED: OXYGEN (09:13)
--- NOTE | 2021-10-01 09:38 | NUR ---
JENNIFER notified by RT that the patient will need 2L of oxygen going home. Patient's Shi contacted and is agreeable to picking the oxygen up prior to picking the patient up. Shi chose [facility] for [employer] company. Oxygen order faxed to [facility]. PAtient's RN notified of the above.
--- NOTE | 2021-10-01 11:18 | NUR ---
PTS HOME MEDICATIONS WERE GOTTEN FROM PHARMACY AND OUT OF PT BED IN MED ROOM AND GIVEN BACK TO PT. PT SIGNED PHARM PAPER TO CONFIRM.
[2021-10-01 12:02] VITALS: BP 117/86; PULSE 68; TEMP 98.4
== END 2021-10-01 14:00 | disposition home or self-care (01) | DRG 177 ==
LOC: COL.ER 21:49 → MEDICAL 23:17
PROVIDERS: Internal Medicine; Internal Medicine Infectious Disease; Internal Medicine Pulmonary Disease; Nurse Practitioner; Physician Assistant; ADMIT Student in an Organized Health Care Education/Training Program
PROC: XW033E5 Introduction of Remdesivir Anti-infective into Peripheral Vein, Percutaneous Approach, New Technology Group 5 (ICD-10-PCS; principal; 2021-09-19)
PROC: 3E0DX3Z Introduction of Anti-inflammatory into Mouth and Pharynx, External Approach (ICD-10-PCS; 2021-09-19)
PROC: XW033H5 Introduction of Tocilizumab into Peripheral Vein, Percutaneous Approach, New Technology Group 5 (ICD-10-PCS; 2021-09-28)
DX: U07.1 COVID-19 (principal); J12.82 Pneumonia due to coronavirus disease 2019; J96.01 Acute respiratory failure with hypoxia; I10 Essential (primary) hypertension; E87.5 Hyperkalemia; K76.0 Fatty (change of) liver, not elsewhere classified; R50.9 Fever, unspecified; F43.10 Post-traumatic stress disorder, unspecified; F41.9 Anxiety disorder, unspecified; Z79.82 Long term (current) use of aspirin; Z88.8 Allergy status to other drugs, medicaments and biological substances
CPT/HCPCS: 99223-AI; 99232-AI; 99233-AI; 99239; J0248; J0696; J1100; J1450; J1644; J1650; J1956; J2405; J2543; J7030; J7050; J8540; Q0249; Q9967

== ENCOUNTER 2022-10-04 15:55 | Emergency (ER) | payer MEDICAID ==
[~2022-10-04] VITALS: Ht 175.3 cm; Wt 104.1 kg
[~2022-10-04 15:55] MED LIST changes: +ADVIL200 MG PO; +BRINTELLIX5; +FLONASE NASAL S16 GM NS; +MUCINEX1200 MG PO; +OXYGEN; +PRINIVIL20 MG PO; +PROAIR HFA0.09 MG/AC IH; +TYLENOL 500MG500 MG PO; +ZOFRAN 4MG T4 MG/TAB PO
[2022-10-04 16:09] VITALS: TEMP 98.7
[2022-10-04 19:25] LABS: BASO % 0.3 % (0.0-2.0); EOS # 0.1 K/mm3 (0.0-0.7); GRAN # 6.5 K/mm3 (1.4-6.5); GRAN % 71.9 % (42.2-75.2); HEMOGLOBIN 14.8 g/dl (13.5-18.0); LYMPH # 1.8 K/mm3 (1.2-3.4); MEAN CELL VOLUME 87 fl (80.0-100.0); MEAN CORPUSCULAR HEMOGLOBIN 29 pg (27-31); MEAN CORPUSCULAR HGB CONC 34 g/dl (33.0-37.0); MEAN PLATELET VOLUME 9.3 fl (7.4-10.4); MONO # 0.6 K/mm3 (0.1-0.6); MONO % 6.6 % (1.7-9.3); PLATELET COUNT 208 K/mm3 (130-400); RED BLOOD COUNT 5.04 M/mm3 (4.20-5.60); REDCELL DISTRIBUTION WIDTH-CV 13.2 % (11.5-14.5)
[2022-10-04 19:49] LABS: ERYTHROCYTE SEDIMENTATION RATE 4 mm/hr (0-15)
[2022-10-04] MEDS ORDERED: BACTRIM DS 8001 TAB PO (21:46)
[2022-10-04 22:02] VITALS: BP 142/87; PULSE 80
== END 2022-10-04 21:55 | disposition home or self-care (01) ==
LOC: COL.ER 15:55
PROVIDERS: Emergency Medicine
DX: M70.21 Olecranon bursitis, right elbow (principal); Z28.310 Unvaccinated for COVID-19

== ENCOUNTER → 2022-10-21 | Outpatient (CLI) | payer MEDICAID ==
[~2022-10-21] MED LIST changes: +BACTRIM DS 8001 TAB PO
== END ==
LOC: COL.RAD 16:18
DX: M25.541 Pain in joints of right hand (principal)

== ENCOUNTER → 2023-04-15 | Outpatient (CLI) | payer MEDICAID | LOC: COL.PUL 15:10 | DX: R06.02 Shortness of breath (principal) ==